=== PATIENT | male | born 1990 | race Caucasian/White ===

== ENCOUNTER 2022-03-01 04:43 | Emergency (ER) | payer OTHER ==
[2022-03-01 05:08] LABS: BASOPHIL 0.2 % (0-2); EOSINOPHIL 0.6 % (0-5); LYMPHOCYTE 11.9 % (15-48); MCH 28.2 pg (25.0-31.0); MCHC 33.3 g/dL (32.0-36.0); MCV 84.6 fL (78.0-100.0); MONOCYTE 6.5 % (0-12); MPV 8.9 fL (6.0-9.5); NEUTROPHIL 80.6 % (41-80); NRBC 0; PLT 219 K/uL (150-400); RBC 5.32 M/uL (4.70-6.00); RDW 12.7 % (11.5-14.0); WBC 12.5 K/uL (4.0-10.5)
[2022-03-01 05:29] LABS: ALBUMIN 4.6 g/dL (3.4-5.0); BILIRUBIN - TOTAL 0.7 mg/dL (0.2-1.0); BUN/CREAT RATIO (CALC) 17.2 RATIO; CREATININE 0.99 mg/dL (0.67-1.17); GLOBULIN (CALCULATION) 2.8 g/dL; POTASSIUM 3.8 mmol/L (3.5-5.1); TOTAL PROTEIN 7.4 g/dL (6.4-8.2)
[2022-03-01] MEDS ORDERED: NORCO 5-325 TA1 EACH PO (07:27)
[2022-03-01] MEDS ORDERED: ONDANSETRON ODT4 MG PO (07:27)
[2022-03-01] MEDS ORDERED: PHENERGAN25 M1 PO (07:27)
== END 2022-03-01 07:38 | disposition home or self-care (01) ==
LOC: FER 04:43
PROVIDERS: Internal Medicine
DX: K52.9 Noninfective gastroenteritis and colitis, unspecified (principal); I10 Essential (primary) hypertension; Z79.899 Other long term (current) drug therapy
CPT/HCPCS: 36415; 80053; 83690; 84145; 85025; J1170; J2405; J2550; J7120